=== PATIENT | female | born 1995 | race Caucasian/White ===

== ENCOUNTER 2020-11-24 05:51 | Inpatient (IN) | payer BC ==
[~2020-11-24] VITALS: Ht 162.6 cm; Wt 72.6 kg
[2020-11-24] MEDS ORDERED: PRENATAL VITAM1 EACH PO (06:07)
--- NOTE | 2020-11-24 10:25 | PR ---
[facility] [address] [place], [place] [address] Signed Progress Notes IP Datetime Report Generated by RUDDY: 11/24/2020 10:25 PROGRESS NOTES: [id number] Impression: Normal Progression of Labor; Reassuring Heart Rate Procedures: Artificial ROM; Sterile Vag Exam Plan: Continue Present Management; Anesthesia Consult VITAL SIGNS: [id number] Vital Signs: Reviewed; Within Normal Limits EXAM: [id number] Dilatation: 3.0 Effacement: 75 Station: -2 Contractions: irregular, irritable MEMBRANES: [id number] Comments: Getting more uncomfortable. Progressing well. Will proceed with epidural. FETUS A: [id number] FHR Baseline: 140 Variability: Moderate 6-25bpm Accelerations: 15X15 Decelerations: None FHR Category: Category I Presentation: Vertex Comments on Fetus A: No evidence of metabolic acidosis FETUS B: [id number] Signing Physician: Renee Gant MD Copies: ~ *Electronically Signed* 11/24/20 1025 RENEE GANT MD PATIENT NAME: RAMIROVERENICEDIANA PARSON PROGRESS NOTE DATE OF : 97 PHYSICIAN: RENEE GANT MD RPT #: [id number] REPORT IS CONFIDENTIAL AND NOT TO BE RELEASED WITHOUT AUTHORIZATION
--- NOTE | 2020-11-24 12:49 | PR ---
[facility] [address] [facility] [place], [place] [address] Signed Progress Notes IP Datetime Report Generated by RUDDY: 11/24/2020 12:49 PROGRESS NOTES: [id number] Impression: Normal Progression of Labor; Reassuring Heart Rate Procedures: Intrauterine Pressure Catheter; Sterile Vag Exam Plan: Anesthesia Consult VITAL SIGNS: [id number] Vital Signs: Reviewed; Within Normal Limits EXAM: [id number] Dilatation: 4.0 Effacement: 75 Station: -2 Contractions: irregular, irritable MEMBRANES: [id number] Comments: Still not comfortable after epidural. Contractions have spaced out as well. I suspect the contractions are inadequate. Will arrange for anesthesia consult and will augment if needed. FETUS A: [id number] FHR Baseline: 140 Variability: Moderate 6-25bpm Accelerations: 15X15 Decelerations: None FHR Category: Category I Presentation: Vertex Comments on Fetus A: No evidence of metabolic acidosis FETUS B: [id number] Signing Physician: Renee Gant MD Copies: ~ *Electronically Signed* 11/24/20 1249 RENEE GANT MD PATIENT NAME: IRONS,VERENICE EB PROGRESS NOTE DATE OF : 97 PHYSICIAN: RENEE GANT MD RPT #: [id number] REPORT IS CONFIDENTIAL AND NOT TO BE RELEASED WITHOUT AUTHORIZATION
--- NOTE | 2020-11-25 08:27 | PR ---
[facility] [address] [facility] [place], [place] [address] Signed PP Progress Notes Datetime Report Generated by CPN: 11/25/2020 08:27 SUBJECTIVE: [id number] Pain: Within Normal Limits Vital Signs: [id number] Vital Signs: Reviewed; Within Normal Limits Cardiovascular: Not Done Respiratory: Not Done Abdomen/Uterus: Abnormal Lochia: Normal Vulva/Perineum: Not Done Breasts: Not Done CVA Tenderness: Not Done Extremities: Normal Incision: Not Applicable Progress: Abnormal Exam Comments: Fundus firm, NT @ U-2. H/H 9.9/30.2, WBC 16.8, plat 213k IMPRESSION/PLAN/PROCEDURES: [id number] Impression: Normal Progression; Difficulties Plan: Consult Progress Notes: Doing well except with breast feeding. Will arrange for continued help with probable D/C tomorrow. Signing Physician: Renee Gant MD Copies: ~ *Electronically Signed* 11/25/20826 RENEE GANT MD PATIENT NAME: VERENICE RUBIO PROGRESS NOTE DATE OF : 97 PHYSICIAN: RENEE GANT MD RPT #: [id number] REPORT IS CONFIDENTIAL AND NOT TO BE RELEASED WITHOUT AUTHORIZATION
--- NOTE | 2020-11-26 10:04 | PR ---
[facility] [address] [facility] [place] [address] Signed PP Progress Notes Datetime Report Generated by CPN: 11/26/2020 10:04 SUBJECTIVE: [id number] Pain: Within Normal Limits Vital Signs: [id number] Vital Signs: Reviewed; Within Normal Limits Cardiovascular: Not Done Respiratory: Not Done Abdomen/Uterus: Abnormal Lochia: Normal Vulva/Perineum: Not Done Breasts: Not Done CVA Tenderness: Not Done Extremities: Normal Incision: Not Applicable Progress: Normal Exam Comments: Fundus firm, NT @ U-2. IMPRESSION/PLAN/PROCEDURES: [id number] Impression: Normal Progression Plan: Discharge Progress Notes: Doing well. She is ready for D/C. Signing Physician: Renee Gant MD Copies: ~ *Electronically Signed* 11/26/20 1004 RENEE GANT MD PATIENT NAME: VERENICE RUBIO PROGRESS NOTE DATE OF : 97 PHYSICIAN: RENEE GANT MD RPT #: [id number] REPORT IS CONFIDENTIAL AND NOT TO BE RELEASED WITHOUT AUTHORIZATION
== END 2020-11-26 11:14 | disposition home or self-care (01) | DRG 807 ==
LOC: FBC 05:51
PROVIDERS: ADMIT Obstetrics & Gynecology; ATTEND Obstetrics & Gynecology
PROC: 10E0XZZ Delivery of Products of Conception, External Approach (ICD-10-PCS; principal; 2020-11-24)
PROC: 0KQM0ZZ Repair Perineum Muscle, Open Approach (ICD-10-PCS; 2020-11-24)
PROC: 10H07YZ Insertion of Other Device into Products of Conception, Via Natural or Artificial Opening (ICD-10-PCS; 2020-11-24)
PROC: 10907ZC Drainage of Amniotic Fluid, Therapeutic from Products of Conception, Via Natural or Artificial Opening (ICD-10-PCS; 2020-11-24)
PROC: 3E0P7VZ Introduction of Hormone into Female Reproductive, Via Natural or Artificial Opening (ICD-10-PCS; 2020-11-24)
PROC: 00HU33Z Insertion of Infusion Device into Spinal Canal, Percutaneous Approach (ICD-10-PCS; 2020-11-24)
PROC: 3E0R3BZ Introduction of Anesthetic Agent into Spinal Canal, Percutaneous Approach (ICD-10-PCS; 2020-11-24)
DX: O36.5930 Maternal care for other known or suspected poor fetal growth, third trimester, not applicable or unspecified (principal); Z37.0 Single live birth; Z3A.39 39 weeks gestation of pregnancy; O76 Abnormality in fetal heart rate and rhythm complicating labor and delivery; O69.81X0 Labor and delivery complicated by cord around neck, without compression, not applicable or unspecified; O70.1 Second degree perineal laceration during delivery; O28.2 Abnormal cytological finding on antenatal screening of mother; O99.284 Endocrine, nutritional and metabolic diseases complicating childbirth; E28.2 Polycystic ovarian syndrome; Z88.0 Allergy status to penicillin
CPT/HCPCS: 01960; 36415; 85027; A9270; J2001; J2590; J2795; J7121

== ENCOUNTER 2023-07-16 04:39 | Inpatient (IN) | payer BC ==
[~2023-07-16] VITALS: Ht 162.6 cm; Wt 69.9 kg
[~2023-07-16 04:39] MED LIST: PRENATAL VITAM1 EACH PO
[2023-07-16 05:24] LABS: HEMATOCRIT 38.3 % (35.0-50.0); HEMOGLOBIN 12.7 g/dL (12.0-18.0); MCH 28.8 (27-36); MCHC 33.2 g/dl (30-36); MCV 86.6 fl (81-99); RBC 4.41 M/ul (4.3-5.7); RDW 14.5 (10.5-15.0)
[2023-07-16 06:05] LABS: INFLUENZA B NAA NEGATIVE (NEGATIVE); RESPIRATORY SYNCYTIAL VIR NAA NEGATIVE (NEGATIVE)
[2023-07-16 06:19] VITALS: BP 137/88
[2023-07-16 06:21] VITALS: BP 137/88
[2023-07-16 06:25] LABS: ABO A; ANTIBODY SCREEN NEGATIVE; RH POSITIVE
[2023-07-16 07:36] LABS: AMPHETAMINES, URINE NEGATIVE (NEGATIVE); BARBITURATES, URINE NEGATIVE (NEGATIVE); BENZODIAZEPINE, URINE NEGATIVE (NEGATIVE); BUPRENORPHINE, URINE NEGATIVE (NEGATIVE); CANNABINOID, URINE NEGATIVE (NEGATIVE); COCAINE, URINE NEGATIVE (NEGATIVE); ECSTASY, URINE NEGATIVE (NEGATIVE); FENTANYL, URINE NEGATIVE (NEGATIVE); METHADONE, URINE NEGATIVE (NEGATIVE); OPIATES, URINE NEGATIVE (NEGATIVE); OXYCODONE, URINE NEGATIVE (NEGATIVE); PHENCYCLIDINE, URINE NEGATIVE (NEGATIVE)
--- NOTE | 2023-07-16 09:30 | PR ---
[facility] [address] [facility] [place], [place] [address] Signed Progress Notes IP Datetime Report Generated by CPN: 07/16/2023 09:30 PROGRESS NOTES: [id number] Impression: Normal Progression of Labor Procedures: Artificial ROM; Sterile Vag Exam Plan: Continue Present Management VITAL SIGNS: [id number] Vital Signs: Reviewed; Within Normal Limits EXAM: [id number] Dilatation: 4.5 Effacement: 90 Station: -2 Contractions: q 5 min MEMBRANES: [id number] Comments: Comfortable after epidural. Expect contractions with increase with AROM. Will continue. FETUS A: [id number] FHR Baseline: 120 Variability: Moderate 6-25bpm Accelerations: 15X15 Decelerations: None FHR Category: Category I Presentation: Vertex FETUS B: [id number] Signing Physician: Renee Gant MD Copies: ~ *Electronically Signed* 07/16/23929 RENEE GANT MD PATIENT NAME: VERENICE RUBIO PROGRESS NOTE DATE OF : 97 PHYSICIAN: RENEE GANT MD RPT #: [id number] REPORT IS CONFIDENTIAL AND NOT TO BE RELEASED WITHOUT AUTHORIZATION
[2023-07-17 05:25] LABS: HEMATOCRIT 32.7 % (35.0-50.0); HEMOGLOBIN 10.8 g/dL (12.0-18.0); MCH 28.5 (27-36); MCV 86.4 fl (81-99); RBC 3.78 M/ul (4.3-5.7); RDW 14.2 (10.5-15.0)
--- NOTE | 2023-07-17 10:07 | PR ---
[facility] [address] [facility] [place], [place] [address] Signed PP Progress Notes Datetime Report Generated by CPN: 07/17/2023 10:07 SUBJECTIVE: [id number] Pain: Within Normal Limits Vital Signs: [id number] Vital Signs: Reviewed; Within Normal Limits EXAM: Ongoing Cardiovascular: Not Done Respiratory: Not Done Abdomen/Uterus: Abnormal Lochia: Normal Vulva/Perineum: Not Done Breasts: Not Done CVA Tenderness: Not Done Extremities: Normal Incision: Not Applicable Progress: Normal Exam Comments: Fundus firm, NT @ U-2. H/H 10.8/32.7, WBC 11.9, plat 146k IMPRESSION/PLAN/PROCEDURES: [id number] Impression: Normal Progression Plan: Discharge Procedures: None Progress Notes: Doing well. She desires discharge. Signing Physician: Renee Gant MD Copies: ~ *Electronically Signed* 07/17/23 RENEE CONNOLLY MD PATIENT NAME: VERENICE RUBIO PROGRESS NOTE DATE OF : 97 PHYSICIAN: RENEE GANT MD RPT #: [id number] REPORT IS CONFIDENTIAL AND NOT TO BE RELEASED WITHOUT AUTHORIZATION
== END 2023-07-17 12:45 | disposition home or self-care (01) | DRG 798 ==
LOC: FBCO 04:39 → FBC 05:03
PROVIDERS: ADMIT Obstetrics & Gynecology; ATTEND Obstetrics & Gynecology
PROC: 10E0XZZ Delivery of Products of Conception, External Approach (ICD-10-PCS; principal; 2023-07-16)
PROC: 10D17ZZ Extraction of Products of Conception, Retained, Via Natural or Artificial Opening (ICD-10-PCS; 2023-07-16)
PROC: 0HQ9XZZ Repair Perineum Skin, External Approach (ICD-10-PCS; 2023-07-16)
PROC: 10907ZC Drainage of Amniotic Fluid, Therapeutic from Products of Conception, Via Natural or Artificial Opening (ICD-10-PCS; 2023-07-16)
PROC: 4A1HXCZ Monitoring of Products of Conception, Cardiac Rate, External Approach (ICD-10-PCS; 2023-07-16)
DX: O48.0 Post-term pregnancy (principal); Z37.0 Single live birth; Z3A.40 40 weeks gestation of pregnancy; O69.81X0 Labor and delivery complicated by cord around neck, without compression, not applicable or unspecified; O70.0 First degree perineal laceration during delivery; O73.1 Retained portions of placenta and membranes, without hemorrhage; Z88.0 Allergy status to penicillin
CPT/HCPCS: 01960; 36415; 80307; 85027; 86850; 86900; 86901; 87502; A9270; J2405; J2590; J7121; U0002

== ENCOUNTER 2023-08-11 12:48 | Emergency (ER) | payer BC ==
[~2023-08-11] VITALS: Ht 152.4 cm; Wt 69.8 kg
[2023-08-11 14:02] LABS: BASOPHILS 0.2 % (0-2); EOSINOPHILS 0.6 % (0-6); HEMATOCRIT 39.9 % (35.0-50.0); HEMOGLOBIN 13.1 g/dL (12.0-18.0); LYMPHOCYTES 9.1 % (24-44); MCH 28.5 (27-36); MCHC 32.8 g/dl (30-36); MCV 86.8 fl (81-99); MONOCYTES 3.6 % (0-12); NEUTROPHILS 86.5 % (39-80); PLATELET COUNT 204 K/uL (140-440); RDW 14.5 (10.5-15.0)
[2023-08-11 14:12] LABS: ALBUMIN 3.8 g/dL (3.4-5.0); ALBUMIN/GLOBULIN RATIO 1.12 (1.1-2.4); ANION GAP 15.4 (7-21); BILIRUBIN, TOTAL 0.2 ng/dL (0.2-1.0); BUN/CREATININE RATIO 11.76 (6.0-28.6); CALCIUM 8.6 mg/dL (8.5-10.1); CREATININE, SERUM 0.85 mg/dL (0.55-1.02); POTASSIUM 4.4 mmol/L (3.5-5.1); PROTEIN, TOTAL 7.2 g/dL (6.4-8.2)
[2023-08-11 14:47] LABS: INFLUENZA B NAA NEGATIVE (NEGATIVE); RESPIRATORY SYNCYTIAL VIR NAA NEGATIVE (NEGATIVE)
[2023-08-11 16:02] LABS: BILIRUBIN, URINE POSITIVE (negative); BLOOD/HGB, URINE LARGE (Negative); KETONE, URINE SMALL (Negative); LEUK ESTERASE, URINE NEGATIVE (negative); NITRITE, URINE NEGATIVE (negative)
[2023-08-11 16:11] LABS: BACTERIA, URINE NONE SEEN /hpf (negative); CASTS, URINE NONE SEEN \\lpf; CRYSTALS, URINE NONE SEEN (0-1+); EPITHELIAL CELLS, URINE 0 /lpf (0-1+); RED BLOOD CELLS, URINE >50 /hpf (0-5)
[2023-08-11 16:12] LABS: COLLECTION TYPE, URINE CLEAN CATCH; REFLEX CULTURE, URINE No (No)
[2023-08-11] MEDS ORDERED: CEPHALEXIN500 M1 PO (16:18)
[2023-08-11 16:28] VITALS: BP 99/68
== END 2023-08-11 16:24 | disposition home or self-care (01) ==
LOC: ED 12:48
PROVIDERS: Emergency Medicine
DX: O91.22 Nonpurulent mastitis associated with the puerperium (principal); Z20.822 Contact with and (suspected) exposure to COVID-19; Z88.0 Allergy status to penicillin
CPT/HCPCS: 36415; 80053; 81001; 85025; 87502; 99283; A9270; C9803; U0002